=== PATIENT | male | born 1945 ===

== ENCOUNTER 2023-09-16 01:05 | Day surgery (SDC) | payer MEDICARE, BC, SELFPAY ==
[2023-09-15 14:24] VITALS: BMI 42.9
[2023-09-16] VITALS (14 sets, daily range): BP systolic 117–172; BP diastolic 3–73; PULSE 50–58; RESP 14–18; TEMP 36.2–36.3; O2SAT 94–99; BMI 42.3
[2023-09-16 09:47] LABS: Basophils Absolute Auto 0.1 K/mm3 (0.0-0.1); Basophils Percent Auto 0.5 % (0.2-1.2); Eosinophils Absolute Auto 0.3 K/mm3 (0-0.3); Eosinophils Percent Auto 2.3 % (0-4.4); Hematocrit 34.8 % (42.0-52.0); Hemoglobin 11.2 g/dL (14.0-18.0); Immature Granulocyte Absolute 0.04 K/mm3 (0.00-0.031); Immature Granulocyte Percent A 0.3 % (0-0.5); Lymphocytes Percent Auto 12.8 % (18.3-44.2); Mean Corpuscular HGB Conc 32.2 g/dl (32-36); Mean Corpuscular Hemoglobin 28.1 pg (26-34); Mean Corpuscular Volume 87.4 fl (80-100); Mean Platelet Volume 9.2 fl (7.4-10.4); Monocytes Absolute Auto 0.7 K/mm3 (0.1-0.6); Monocytes Percent Auto 6.3 % (2.6-8.5); Neutrophils Absolute Auto 9.1 K/mm3 (1.3-6.7); Neutrophils Percent Auto 77.8 % (45.5-73.1); Platelet Count Result 374 k/mm3 (150-375); Red Blood Count 3.98 M/mm3 (4.6-6.20); Red Cell Distribution Width 13.8 % (11.5-14.5); White Blood Count 11.7 K/mm3 (4.5-10.0)
[2023-09-16] MEDS: SODIUM CHLORIDE 0.9% IV 500 ML 100 ML IV CONT (09:49)
[2023-09-16 09:56] LABS: Anion Gap 9 mmol/L (8-16); Blood Urea Nitrogen 32 mg/dL (9-20); Calcium 9.3 mg/dL (8.4-10.2); Carbon Dioxide 27 mmol/L (22-30); Chloride 102 mmol/L (98-107); Estimated CRCL calculation 33 ml/min; Estimated Glomerular Filt Rate 29; Glucose 98 mg/dL (65-110); Potassium 3.6 mmol/L (3.4-5.0); Sodium 138 mmol/L (137-145)
--- NOTE | 2023-09-16 11:49 | WPDHPUPDATE1 ---
History and Physical Update Update Date/Time: 09/16/23 11:49 History and Physical has been reviewed, including an updated exam of the patient. There are NO changes in the patient's condition. Risks, benefits, and alternatives have been discussed and questions answered. Patient agrees to proceed with procedure.
--- NOTE | 2023-09-16 11:49 | WPDMODSED ---
Moderate Sedation Note-Pt Data Patient Data Diagnosis: Coronary artery disease Present Complaint: Abnormal stress test Procedure to be performed/Plan: Coronary angiography, left heart cath, +/- PCI Allergies Allergy/AdvReac Type Severity Reaction Status Date / Time oxycodone [From Percocet] AdvReac Other Verified 09/16/23 09:35 Home Medications Medication Instructions Recorded Confirmed Type Daily Multivitamin 1 tablet PO DAILY 09/15/23 09/15/23 History amlodipine 5 mg tablet 5 mg PO BID 09/15/23 09/15/23 History aspirin 81 mg chewable tablet 81 mg PO HS 09/15/23 09/15/23 History chlorthalidone 50 mg tablet 50 mg PO DAILY 09/15/23 09/15/23 History diclofenac sodium 1 % topical gel 1 g topical DAILY PRN Pain 09/15/23 09/15/23 History escitalopram oxalate 10 mg tablet 10 mg PO DAILY 09/15/23 09/15/23 History esomeprazole magnesium 40 mg 40 mg PO DAILY 09/15/23 09/15/23 History capsule,delayed release fexofenadine 180 mg tablet 180 mg PO DAILY 09/15/23 09/15/23 History fluticasone propionate 50 1 spray intranasal BID PRN 09/15/23 09/15/23 History mcg/actuation nasal allergies spray,suspension (Flonase Allergy Relief) glipizide 5 mg tablet, extended 5 mg PO BID 09/15/23 09/15/23 History release 24 hr hydralazine 50 mg tablet 50 mg PO TID 09/15/23 09/15/23 History insulin glargine 100 unit/mL (3 36 unit subcut DAILY 09/15/23 09/15/23 History mL) subcutaneous pen ([place] U-100 Insulin) lidocaine 5 % topical patch 1 patch transdermal DAILY PRN Pain 09/15/23 09/15/23 History lisinopril 40 mg tablet 40 mg PO DAILY 09/15/23 09/15/23 History magnesium gluconate 500 mg tablet 500 mg PO BID 09/15/23 09/15/23 History meloxicam 7.5 mg tablet 7.5 mg PO DAILY PRN Pain 09/15/23 09/15/23 History nebivolol 10 mg tablet 10 mg PO DAILY 09/15/23 09/15/23 History simvastatin 10 mg tablet 10 mg PO HS 09/15/23 09/15/23 History sitagliptin phosphate 50 1 tablet PO BID 09/15/23 09/15/23 History mg-metformin 1,000 mg tablet (Angie) spironolactone 25 mg tablet 25 mg PO DAILY 09/15/23 09/15/23 History tamsulosin 0.4 mg capsule 0.4 mg PO HS 09/15/23 09/15/23 History Current Medications: Active Medications Sodium Chloride (Normal Saline Iv) 500 mls @ 100 mls/hr IV CONT .Q5H KATRINA Last Admin: 09/16/23 09:49 Dose: 100 mls/hr Miscellaneous Information (Please Add Drug Allergy Info To Patient Profile.) 1 each XX CLARIFY KATRINA Stop: 10/15/23 00:00 Sedation/Anesthesia: No previous sedation/anesthesia problems (including family history). [facility] Social History Social History Smoking packs per day: 2 Smoking cigarettes per day: 40.0 Years smoked: 20 Smoking pack-years: 40.00 Smoking status: Former smoker Tobacco type: cigarettes Alcohol intake: current Alcohol use details: 2-3 per month Substance use: never Substance use type: does not use Last use: 1984 Living arrangements: with family Spiritual care concerns: No Mod Sed Physical Exam Physical Exam Pre Procedural Exam: Normal: Lungs, Heart Rate, Heart Rhythm, Neuro Exam, Extremities and Skin and Variation: Appearance (Morbidly obese) Hours since solid foods: 12 Hours since liquid intake: 8 Mallampati Classification: class III Internal Medicine - PN: Obj Da Vital Signs Vital Signs: Vital Signs - 24 hr 09/16/23 09:37 Temperature 36.3 C L Pulse Rate 58 L Respiratory Rate 16 Blood Pressure 150/57 H Pulse Oximetry 97 Oxygen Delivery Room Air Meds/Results Medications: Active Medications Generic Name Dose Route Start Last Admin Trade Name Freq PRN Reason Stop Dose Admin Sodium Chloride 500 mls @ 100 mls/hr 09/16/23 09:00 09/16/23 09:49 Normal Saline Iv IV CONT 100 mls/hr .Q5H KATRINA Administration Miscellaneous Information 1 each 09/15/23 00:01 Please Add Drug Allergy Info To Patient Profile. XX 10/15/23 00:00 CLARIFY [facility]
--- NOTE | 2023-09-16 12:15 | WPDCARDPROC ---
Cardiac Cath Procedure Note Date of procedure:: 09/16/23 Performing physician:: CATHETERIZATION LABORATORY REPORT Procedure Date: 09/16/2023 Log Chain Worker: Jazzy Colon M.D., [facility]? Referring Physician: Alec Myers M.D. ? Anesthesia: Versed and Fentanyl were ordered and given in my presence at 11:47, procedure ended at 12:09. Supervision of nurse monitored moderate sedation with Versed and Fentanyl was provided for 22 minutes. Total of Versed 1mg and Fentanyl 25mcg were administered by the Collection Systems Worker RN Danika Curry. Pre-op Diagnosis: Coronary artery disease Post-op Diagnosis: Single vessel coronary artery disease with significant obstructive disease in the mid LAD. Procedure(s): 1. Moderate sedation 2. Ultrasound-guided access of the right radial artery 3. Coronary angiography 4. Left heart catheterization Access Site: Right radial artery Brief History and Clinical Indications: Patient is a 78 year old male hypertension, diabetes mellitus, CKD, hyperlipidemia, DONAVAN, morbid obesity who is referred for [facility] for abnormal stress test. MPI shows LVEF 59% with small area of apical/apical anterior ischemia. All risks, benefits and alternatives to left heart catheterization with or without percutaneous coronary intervention was discussed at length with the patient. Risk of complications including but not limited to bleeding, infection, arrhythmia, stroke, worsening kidney function, blood loss, groin hematoma, limb loss, emergency coronary artery bypass grafting, and even were discussed with the patient and all questions were answered. The patient understood and wished to proceed. Time out called, patient name, date of , medical record number, allergies, procedure performed, identify Log Chain Worker, patient and staff member concurred with accurate data, procedure carried on. Findings: LEFT HEART CATHETERIZATION FINDINGS: 1. Left main: The left main coronary artery is widely patent without any significant obstructive disease. The left main is short. 2. Left anterior descending: The proximal LAD has diffuse mild disease. The first diagonal branch has luminal irregularities. The second diagonal branch has luminal irregularities. The mid LAD immediately distal to the bifurcation of the second diagonal branch has a significant stenosis of up to 90% followed by a tandem lesion of moderate stenosis. The distal LAD has luminal irregularities. 3. Left circumflex: The mid portion of the left circumflex artery has diffuse mild disease without any significant obstructive angiographic disease. The main marginal branches have luminal irregularities without any significant obstructive angiographic disease. 4. Right coronary artery: The RCA is the dominant vessel. The RCA has diffuse mild disease without any significant obstructive angiographic disease. 5. Left ventricle: A. End-diastolic pressure 22 mmHg. B. LV gram deferred. C. No significant gradient across aortic valve on catheter pullback. Description of Procedure: Informed consent signed and placed in the chart. Patient transferred to laborer rags room. Prepped and draped in usual sterile fashion. 2% lidocaine injected subcutaneously in right wrist area. 22-gauge venipuncture catheter used to access the right radial artery under ultrasound guidance. 6-FR slender sheath placed in right radial artery. Nitroglycerine and Verapamil were given intraarterial through the sheath. Versacore wire advanced under fluoroscopy 5F Tig 4 diagnostic catheter engaged Left Main Coronary Artery. 5F Tig 4 diagnostic catheter engaged Right Coronary Artery Multiple orthogonal angiogram obtained and reviewed 5F Pigtail diagnostic catheter crossed aortic valve to obtain LVEDP, LV angiogram deferred. Hemostasis was achieved by application of TR band. Post Operative Condition: Stable No significant blood loss Disposition: Home Plan: The patient will be monitored in the recovery area. D
== END 2023-09-16 15:30 | disposition home or self-care (01) ==
PROVIDERS: PCP Family Medicine; Visit Provider Internal Medicine
PROC: 4A023N7 Measurement of Cardiac Sampling and Pressure, Left Heart, Percutaneous Approach (ICD-10-PCS; CPT 93452; principal; 2023-09-16 11:30)
DX: I25.10 Atherosclerotic heart disease of native coronary artery without angina pectoris (principal); R94.39 Abnormal result of other cardiovascular function study; Z79.82 Long term (current) use of aspirin; Z79.84 Long term (current) use of oral hypoglycemic drugs; Z79.4 Long term (current) use of insulin; Z87.891 Personal history of nicotine dependence
CPT/HCPCS: 36415; 80048; 85025; 93458; C1769; C1887; C1894; J1644; J2250; J2305; J3010; J7040